=== PATIENT | female | born 1985 | race Caucasian/White ===

== ENCOUNTER → 2018-05-12 | Outpatient (REF) | payer OTHER ==
[~2018-05-12] MED LIST: KLON0.5T PO; KLON1TAB PO; LATU20TA PO; LATU40TA PO; PROZ40CA PO; TRI-TAB PO; XANA0.25 PO; XANA0.5T PO
== END ==
LOC: M LAB LCGH 15:03
PROVIDERS: ATTEND Nurse Practitioner Adult Health
DX: Z12.4 Encounter for screening for malignant neoplasm of cervix (principal)